=== PATIENT | male | born 1975 | race Caucasian/White ===

== ENCOUNTER 2018-04-10 14:59 | Inpatient (IN) | payer BC ==
[~2018-04-10] VITALS: Ht 182.9 cm; Wt 107.5 kg
--- NOTE | ~2018-04-10 | MORECARE ---
CASE MANAGEMENT DISCHARGE SUMMARY PATIENT: SHAKIR BYRNES UNIT: [id number] ADM DATE: 04/10/18 AGE: 42 : [birth year] SEX: M ROOM/BED: D.4508 AUTHOR: JESSICA,DOC PHYSICIAN: REFERRING PHYSICIAN: FAISAL MONROY MD DATE OF SERVICE: 04/13/18 Discharge Plan Patient Name: SHAKIR BYRNES Facility: [facility]:[place] : 1975 Planned Disposition: Home Anticipated Discharge Date: 04/13/18 Discharge Date: 04/13/2018 Expected LOS: 3 Initial Reviewer: [email or web address] Initial Review Date: 04/13/2018 Generated: 04/13/18 7:10 pm Comments DCP- Discharge Planning Updated by [email or web address]: Wilbur Allison on 04/13/18 5:[address] Patient Name: SHAKIR BYRNES Admission Status: ER Accout number: [id number] Admission Date: 04-10-2018 : 1975 Admission Diagnosis:UNSPECIFIED ABDOMINAL PAIN Attending: FAISAL MONROY Current LOS: 3 Anticipated DC Date: 04-13-2018 Planned Disposition: Home Primary Insurance: [employer] OUT OF STATE Discharge Planning Comments: CM MET WITH PT IN ROOM TO DISCUSS DISCHARGE PLANNING AND NEEDS. PT REPORTS LIVING AT HOME INDEPENDENTLY WITH SPOUSE. PT HAS NO MEDICAL EQUIPMENT AND NO OUTSIDE SERVICES ASSISTING IN THE HOME. CM DISCUSSED AVAILABILITY OF HOME HEALTH, REHAB SERVICES AND MEDICAL EQUIPMENT. PT DENIES DISCHARGE NEEDS, REPORTS HIS [facility] IS HERE TO PICK HIM UP FOR DISCHARGE HOME. TRAVEL MONEY ADVISOR NURSE NOTIFIED. Commissary Clerk: Wilbur Allison DCPIA - Discharge Planning Initial Assessment Updated by [email or web address]: Wilbur Allison on 04/13/18 6:02 pm * Is the patient Alert and Oriented? Yes * How many steps to enter\exit or inside your home? 1-0 / 9-I * PCP DR. GARCIA * Pharmacy [facility] IN [place] * Preadmission Environment Home with Family * ADLs Independent * Equipment None * Other Equipment NO MEDICAL EQUIPMENT PROVIDER PREFERENCE * List name and contact numbers for known caregivers / representatives who currently or will assist patient after discharge: MANUEL BYRNES, FATHER, TITI BYRNES, MOTHER, * Verbal permission to speak to the caregivers and representatives has been obtained from the patient. N/A * Community resources currently utilized None * Please name any agencies selected above. NONE * Additional services required to return to the preadmission environment? No * Can the patient safely return to the preadmission environment? Yes * Has this patient been hospitalized within the prior 30 days at any hospital? No Patient Name: SHAKIR BYRNES Page [id number] at 1810 All edits/amendments must be made on the electronic document DICTATION DATE: 04/13/181808 AVIATION SURVIVAL TECHNICIAN: LEEANNA 04/13/181808 RPT#: [id number] [place] DATE:04/13/18 STATUS: DIS IN [facility] [address] [place] [address] END OF REPORT
--- NOTE | ~2018-04-10 | OP ---
PATIENT NAME: SHAKIR BYRNES MEDICAL RECORD: [id number] :[birth year] LOCATION:D. D.2128 ADMISSION DATE:04/10/18 SURGEON: ALANA MAGANA MD DATE OF OPERATION: 04/12/2018 PREOPERATIVE DIAGNOSIS: Acute cholecystitis. POSTOPERATIVE DIAGNOSES: Acute cholecystitis with hepatomegaly. PROCEDURES: 1. Laparoscopic cholecystectomy. 2. Intraoperative cholangiography without immediate surgeon interpretation. 3. A 14-gauge core needle liver biopsy. SURGEON: Alana Magana MD SIPHONER: None. BLOOD LOSS: Minimal. ANESTHESIA: General. COMPLICATIONS: None. The risks, possible complications and alternatives to procedure were explained to the patient. He elects to proceed. The discussion specifically included, but was not limited to, bleeding requiring emergency reoperation, infection, intestinal injury as well as common bile duct injury. The indication for the liver biopsy was hepatomegaly. OPERATIVE COURSE: The patient was conveyed to the operating room electively on 04/12/2018. General anesthesia was induced by the anesthesia staff. The abdomen was sterilely prepped and draped. Small skin incision was accomplished in the left upper quadrant. A Veress needle was inserted through the skin incision into the peritoneal cavity. CO2 insufflation was begun. Once a sufficient pneumoperitoneum had been achieved, a 5-mm trocar was inserted. Under direct internal vision utilizing a television camera, a 12-mm trocar was inserted through an incision at the umbilicus. Another 5-mm trocar was inserted through an incision in the epigastrium. Another 5-mm trocar was inserted through an incision far laterally in the right upper quadrant. During insertion of the Veress needle and all trocars, there appeared to have been no injury to the bowels, any intraperitoneal or retroperitoneal structures. An abdominal survey was undertaken. The gallbladder was acutely inflamed. There was exudate over the gallbladder. The gallbladder had a thickened wall. Under laparoscopic guidance, I percutaneously accessed the right upper quadrant utilizing a 14-gauge core needle liver biopsy device. Cores were obtained over the convexity of the liver. The biopsy sites were made hemostatic with electrocautery. I then advanced a cholangiogram trocar. I punctured the fundus of the gallbladder. I aspirated bile. I then injected dye. Under fluoroscopy, cholangiographic images were obtained and these static images were sent to the OPERATIVE REPORT [id number] FITZSHAKIR radiologist for interpretation. I aspirated bile and then removed the cholangiogram trocar. The gallbladder was grasped and retracted cephalad. The infundibulum was grasped and retracted laterally. Blunt dissection was begun in the triangle of Calot. One cystic artery and one cystic duct were identified. These were clipped multiply and divided between clips. The gallbladder was then excised from its bed in the liver. It was placed within a bag retrieval device and was withdrawn through the umbilical fascial defect. The 12-mm trocar was replaced and the abdomen reinsufflated. I irrigated and aspirated in the right upper quadrant. There was no bleeding even at a low pressure of 8. The 12-mm trocar site was closed with the Lonnie-Brenna suture closure device and 0 Vicryl sutures. The 5-mm trocars were removed. The abdomen was desufflated. The skin at the umbilicus was closed with interrupted 4-0 Vicryl Rapide sutures. The other skin incisions were closed with interrupted intracuticular 3-0 Vicryls. Benzoin and Steri-Strips were applied. The patient was then extubated and conveyed to the post-anesthesia care unit where he was in stable condition. He will be dismissed home perhaps later today with hydrocodone for pain. TRANSINT:[id number] Voice Confirmation ID: [id number] DOCUMENT ID: [id number] ALANA MAGANA MD at 1522 CC: TASHA GARCIA and FAISAL MONROY [id number] DICTATION DATE: 04/13/18 1037 MANAGER IN HOME: 04/13/18 1217 ADM IN [facility] [address] [id number]
[2018-04-10] MEDS ORDERED: COZAAR100 MG PO (15:08)
[2018-04-10] MEDS ORDERED: NORVASC10 MG PO (15:08)
[2018-04-10 15:39] LABS: BASOPHILS 0.1 % (0-2); EOSINOPHILS 0.1 % (0-7); HEMATOCRIT 41.7 % (42.0-54.0); HEMOGLOBIN 14.5 g/dL (13.5-17.5); IMMATURE GRANULOCYTES 0.3 % (0-5); MCH 29.4 pg (26.0-34.0); MCHC 34.8 g/dL (31.0-37.0); MCV 84.4 fL (80.0-100.0); MEAN PLATELET VOLUME 10.2 fL (7.4-10.4); MONOCYTES 11.6 % (2-11); NEUTROPHILS 70.9 % (40-80); PLATELET COUNT 267 10x3/uL (130-400); RBC 4.94 10x6/uL (4.20-6.10); RDW 13.2 % (11.5-14.5); WBC 18.2 10x3/uL (4.8-10.8)
[2018-04-10 16:01] LABS: ANION GAP 18.1 mmol/L (8-16); BILIRUBIN - TOTAL 1.55 mg/dL (0.2-1.3); CALCIUM 9.3 mg/dL (8.5-10.1); CARBON DIOXIDE 23.8 mmol/L (21.0-32.0); CREATININE - SERUM 1.4 mg/dL (0.6-1.3); POTASSIUM - SERUM 3.9 mmol/L (3.5-5.1); PROTEIN - SERUM 7.9 g/dL (6.4-8.2)
[2018-04-10 17:05] LABS: APPEARANCE CLEAR (CLEAR); BILIRUBIN 1+ (NEGATIVE); COLOR DK YELLOW (YELLOW); GLUCOSE NEGATIVE (NEGATIVE); KETONE NEGATIVE (NEGATIVE); NITRITE NEGATIVE (NEGATIVE); PROTEIN TRACE mg/dL (NEGATIVE); SPECIFIC GRAVITY 1.015 (1.005-1.020)
[2018-04-10 17:07] LABS: BACTERIA FEW /hpf (NONE SEEN); EPITHELIAL CELLS 0-5 /hpf (0-5); RED CELLS - URINE 0-5 /hpf (0-5); WHITE CELLS - URINE 0-5 /hpf (0-5)
[2018-04-10 17:08] VITALS: BP 126/72
[2018-04-10 17:30] VITALS: BP 131/69
[2018-04-10 18:00] VITALS: BP 121/67
[2018-04-10 18:30] VITALS: BP 130/75
[2018-04-10] MEDS ORDERED: ALDACTONE25 MG PO (23:05)
[2018-04-11 04:30] VITALS: BP 111/62
[2018-04-11 04:33] VITALS: BP 119/69; BMI 32.2
[2018-04-11 09:32] VITALS: BP 102/63
[2018-04-11 13:17] VITALS: BP 148/60
[2018-04-11 17:22] VITALS: BP 120/77
[2018-04-11 17:22] LABS: BASOPHILS 0.1 % (0-2); EOSINOPHILS 0.7 % (0-7); HEMATOCRIT 38.7 % (42.0-54.0); HEMOGLOBIN 13.3 g/dL (13.5-17.5); IMMATURE GRANULOCYTES 0.2 % (0-5); LYMPHOCYTES 12.8 % (15-50); MCHC 34.4 g/dL (31.0-37.0); MCV 84.3 fL (80.0-100.0); MEAN PLATELET VOLUME 10.1 fL (7.4-10.4); MONOCYTES 10.1 % (2-11); NEUTROPHILS 76.1 % (40-80); PLATELET COUNT 218 10x3/uL (130-400); RBC 4.59 10x6/uL (4.20-6.10)
[2018-04-11 17:24] LABS: WBC 10.3 10x3/uL (4.8-10.8)
[2018-04-11 17:39] LABS: ANION GAP 14.4 mmol/L (8-16); BILIRUBIN - TOTAL 3.84 mg/dL (0.2-1.3); CALCIUM 8.7 mg/dL (8.5-10.1); CARBON DIOXIDE 25.1 mmol/L (21.0-32.0); CREATININE - SERUM 1.2 mg/dL (0.6-1.3); POTASSIUM - SERUM 3.5 mmol/L (3.5-5.1); PROTEIN - SERUM 6.8 g/dL (6.4-8.2)
[2018-04-11 20:30] VITALS: BP 109/72
[2018-04-11 21:05] VITALS: Ht 182.9 cm; Wt 107.5 kg
[2018-04-12 00:30] VITALS: BP 110/69
[2018-04-12 04:30] VITALS: BP 104/60
[2018-04-12 06:10] LABS: BASOPHILS 0.1 % (0-2); EOSINOPHILS 1.5 % (0-7); HEMATOCRIT 37.3 % (42.0-54.0); HEMOGLOBIN 12.4 g/dL (13.5-17.5); IMMATURE GRANULOCYTES 0.2 % (0-5); LYMPHOCYTES 24.9 % (15-50); MCH 28.4 pg (26.0-34.0); MCHC 33.2 g/dL (31.0-37.0); MCV 85.4 fL (80.0-100.0); MEAN PLATELET VOLUME 10.2 fL (7.4-10.4); MONOCYTES 11.8 % (2-11); NEUTROPHILS 61.5 % (40-80); PLATELET COUNT 256 10x3/uL (130-400); RBC 4.37 10x6/uL (4.20-6.10); RDW 13.2 % (11.5-14.5); WBC 8.1 10x3/uL (4.8-10.8)
[2018-04-12 06:33] LABS: ANION GAP 13.3 mmol/L (8-16); BILIRUBIN - TOTAL 1.45 mg/dL (0.2-1.3); CALCIUM 8.7 mg/dL (8.5-10.1); CARBON DIOXIDE 27.6 mmol/L (21.0-32.0); CREATININE - SERUM 1.4 mg/dL (0.6-1.3); MAGNESIUM - SERUM 2.5 mg/dL (1.8-2.4); POTASSIUM - SERUM 3.9 mmol/L (3.5-5.1); PROTEIN - SERUM 6.6 g/dL (6.4-8.2)
[2018-04-12 08:24] VITALS: BP 136/75
[2018-04-12 13:27] VITALS: BP 113/64
[2018-04-12 15:55] VITALS: BP 105/66
[2018-04-12 20:00] VITALS: BP 94/54
[2018-04-13 04:00] VITALS: BP 105/61
[2018-04-13 05:31] LABS: BASOPHILS 0.1 % (0-2); EOSINOPHILS 0.3 % (0-7); HEMATOCRIT 35.6 % (42.0-54.0); HEMOGLOBIN 12.1 g/dL (13.5-17.5); IMMATURE GRANULOCYTES 0.3 % (0-5); LYMPHOCYTES 17.1 % (15-50); MCH 28.5 pg (26.0-34.0); MEAN PLATELET VOLUME 10.1 fL (7.4-10.4); MONOCYTES 8.9 % (2-11); NEUTROPHILS 73.3 % (40-80); PLATELET COUNT 268 10x3/uL (130-400); RBC 4.24 10x6/uL (4.20-6.10)
[2018-04-13 05:55] LABS: ALBUMIN 2.8 g/dL (3.4-5.0); ALKALINE PHOSPHATASE 64 U/L (46-116); ALT (SGPT) 98 U/L (10-68); BILIRUBIN - TOTAL 0.58 mg/dL (0.2-1.3); CALC OSMOLALITY 276 mosm/kg (275-300); CALCIUM 8.3 mg/dL (8.5-10.1); CARBON DIOXIDE 23.9 mmol/L (21.0-32.0); CHLORIDE - SERUM 102 mmol/L (98-107); CREATININE - SERUM 1.1 mg/dL (0.6-1.3); GLUCOSE 107 mg/dL (74-106); MAGNESIUM - SERUM 2.1 mg/dL (1.8-2.4); POTASSIUM - SERUM 3.6 mmol/L (3.5-5.1); PROTEIN - SERUM 6.4 g/dL (6.4-8.2); SODIUM 138 mmol/L (136-145); UREA NITROGEN 14 mg/dL (7-18); eGFR NON AFRICAN AMERICAN 78 mL/min (90-120)
[2018-04-13 06:03] LABS: WBC 12.4 10x3/uL (4.8-10.8)
[2018-04-13 08:05] VITALS: BP 130/82
[2018-04-13 11:21] VITALS: BP 130/70
[2018-04-13] MEDS ORDERED: HYDROCODON-ACE1 EAC7 PO (13:52)
[2018-04-13 16:50] VITALS: BP 116/73
== END 2018-04-13 17:33 | disposition home or self-care (01) | DRG 419 ==
LOC: D.ER 14:59 → D.M2 21:14 → D.EDHOLD 21:14 → D.M2 21:17
PROVIDERS: Family Medicine; Family Medicine Adult Medicine; Surgery
PROC: 0FB04ZX Excision of Liver, Percutaneous Endoscopic Approach, Diagnostic (ICD-10-PCS; 2018-04-12)
PROC: BF121ZZ Fluoroscopy of Gallbladder using Low Osmolar Contrast (ICD-10-PCS; 2018-04-12)
PROC: 0FT44ZZ Resection of Gallbladder, Percutaneous Endoscopic Approach (ICD-10-PCS; principal; 2018-04-12 13:15)
DX: K81.0 Acute cholecystitis (principal); R16.0 Hepatomegaly, not elsewhere classified; I10 Essential (primary) hypertension